=== PATIENT | female | born 1980 | race Caucasian/White ===

== ENCOUNTER 2016-06-21 16:29 | Emergency (ER) | payer SELFPAY ==
[2016-06-21 16:35] VITALS: BP 105/64; PULSE 73; TEMP 97.8; BMI 24.7
== END 2016-06-21 19:17 | disposition left against medical advice (07) ==
LOC: JER 16:29
DX: Z53.21 Procedure and treatment not carried out due to patient leaving prior to being seen by health care provider (principal)
CPT/HCPCS: 99281-25

== ENCOUNTER 2017-05-13 07:22 | Day surgery (SDC) | payer OTHER ==
[2017-05-13] MEDS ORDERED: IRON SUCROSE INJECTION 200 MG in SODIUM CHLORIDE 100 ML IVPB ONE (08:00)
[2017-05-13 09:24] VITALS: TEMP 98.1
[2017-05-13 09:38] VITALS: BP 106/70; PULSE 80
== END 2017-05-13 10:00 | disposition home or self-care (01) ==
LOC: JONCNONCHE 07:22 → J7W 08:34 → JONCNONCHE 10:00
PROVIDERS: ATTEND Internal Medicine Hematology & Oncology
PROC: 3E033GC Introduction of Other Therapeutic Substance into Peripheral Vein, Percutaneous Approach (ICD-10-PCS; principal; 2017-05-13)
DX: D50.9 Iron deficiency anemia, unspecified (principal)
CPT/HCPCS: 96365; J1756

== ENCOUNTER 2017-06-03 07:42 | Day surgery (SDC) | payer OTHER ==
[2017-06-03] MEDS ORDERED: IRON SUCROSE INJECTION 200 MG in SODIUM CHLORIDE 100 ML IVPB ONE (10:00)
[2017-06-03 13:37] VITALS: BP 96/66; PULSE 76; TEMP 98.5
== END 2017-06-03 12:15 | disposition home or self-care (01) ==
LOC: JONCNONCHE 07:42 → J7W 09:54 → JONCNONCHE 12:15
PROVIDERS: ATTEND Internal Medicine Hematology & Oncology
PROC: 3E033GC Introduction of Other Therapeutic Substance into Peripheral Vein, Percutaneous Approach (ICD-10-PCS; principal; 2017-06-03)
DX: D50.9 Iron deficiency anemia, unspecified (principal)
CPT/HCPCS: 96365; J1756

== ENCOUNTER 2017-07-29 07:34 | Day surgery (SDC) | payer OTHER ==
[2017-07-29] MEDS ORDERED: IRON SUCROSE INJECTION 200 MG in SODIUM CHLORIDE 100 ML IVPB ONE (10:00)
[2017-07-29 11:03] LABS: BASO % 1.1 % (0-2.0); HEMATOCRIT 27.4 % (32.4-45.2); HEMOGLOBIN 8.6 GM/dL (10.7-15.3); LYMPH % 51.5 % (8-40); MCH 22.9 pg (25.7-33.7); MCHC 31.3 g/dl (32.0-36.0); MEAN CELL VOLUME 73.1 fl (80-96); MEAN PLT VOLUME 7.1 fl (7.5-11.1); MONO % 9.3 % (3.8-10.2); NEUT % 36.1 % (42.8-82.8); PLATELET COUNT 333 K/MM3 (134-434); RBC 3.74 M/mm3 (3.60-5.2); WHITE BLOOD COUNT 4.3 K/mm3 (4.0-10.0)
[2017-07-29 11:21] LABS: ALBUMIN 3.3 g/dl (3.4-5.0); ANION GAP 6 (8-16); BILIRUBIN,TOTAL 0.1 mg/dL (0.2-1.0); BLOOD UREA NITROGEN 15 mg/dL (7-18); CALCIUM 8.4 mg/dL (8.5-10.1); CHLORIDE 104 mmol/L (98-107); CO2 30 mmol/L (21-32); CREATININE 0.5 mg/dL (0.55-1.02); GLUCOSE,RANDOM 73 mg/dL (74-106); POTASSIUM 4.2 mmol/L (3.5-5.1); SGOT/AST 13 U/L (15-37); SGPT/ALT 23 U/L (12-78); SODIUM 140 mmol/L (136-145); TOT PROT 6.7 g/dl (6.4-8.2)
[2017-07-29 11:23] LABS: ALK PHOS 83 U/L (45-117)
--- NOTE | 2017-07-29 13:19 | HP ---
Satellite [facility] - Chief Complaint Chief Complaint: Here for follow up of iron deficiency anemia. Patient is very noncompliant. Has not followed up and followed through with CT scans or w/u. Has not followe up with Dr. Lara for colposcopy for abnormal pap smear. Reports fatigue, tiresomness History Source: Patient - Past Medical History Allergies/Adverse Reactions: Allergies Allergy/AdvReac Type Severity Reaction Status Date / Time codeine [Codeine] AdvReac Severe Verified 06/22/16 08:51 metoclopramide HCl AdvReac Severe Verified 06/22/16 08:51 [From Reglan] Gastrointestinal: Yes: Other (history of morbid obesity hx of gastric baypass) Hepatobiliary: Yes: Cholelithiasis ...LMP: 10/01/15 Heme/Onc: Yes: Anemia - Current Medications Current Medications: Home Medications Medication Instructions Recorded Aripiprazole [Abilify] 5 mg PO DAILY 10/06/15 Dextroamphetamine/Amphetamine 30 mg PO DAILY 10/06/15 [Adderall Xr 30 mg Capsule] Escitalopram Oxalate [Lexapro -] 20 mg PO DAILY 10/06/15 Ondansetron [Zofran -] 4 mg PO TID PRN #21 tablet 06/22/16 Satellite Physical Exam - Physical Examination General Appearance: Alert & Oriented x3 Lung: Clear to auscultation, Normal air movement Heart: Regular rate & rhythm, Normal S1, Normal S2 Abdomen: Soft, No tenderness Extremities: No edema Neurological: Intact Satellite Impression/Plan - Impression/Plan Impression: 36 y/o patient , s/p gastric bypass. HAs iron deficiency anemia. Noncompliant with follow up and treatment recommendations. Reurged patient to f /u with GI team and f/u with research associate quality control qc team regarding abnormal papsmear/colposcopy. discussed need to follow up CT chest/abdome/pelvis. Symptomatic anemia. will order blood transfusion
[2017-07-29 16:37] VITALS: BP 100/50; PULSE 67; TEMP 98
[2017-07-30 08:10] LABS: SERUM IRON SATURATION 4 % (15-55); TOTAL IRON BINDING CAPACITY 419 ug/dL (250-450); UIBC 401 ug/dL (131-425)
== END 2017-07-29 21:58 | disposition home or self-care (01) ==
LOC: JONCNONCHE 07:34 → J7W 09:20 → JONCNONCHE 21:58
PROVIDERS: ATTEND Internal Medicine Hematology & Oncology
PROC: 3E033GC Introduction of Other Therapeutic Substance into Peripheral Vein, Percutaneous Approach (ICD-10-PCS; principal; 2017-07-29)
DX: D50.9 Iron deficiency anemia, unspecified (principal)
CPT/HCPCS: 36415; 36430; 80053; 82728; 83540; 83550; 84703; 85025; 86850; 86900; 86901; 86922; 96365; J1756; P9038; P9058

== ENCOUNTER 2017-09-15 12:50 | Emergency (ER) | payer OTHER ==
[2017-09-15 13:08] VITALS: BP 108/55; PULSE 83; TEMP 98.3; BMI 25.6
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
[2017-09-15] MEDS ORDERED: KETOROLAC TROMETHAMINE 60 MG/2 ML VIAL IM ONE (13:32)
[2017-09-15] MEDS ORDERED: KETOROLAC TROMETHAMINE 60 MG/2 ML VIAL ONE (13:35)
[2017-09-15] MEDS ORDERED: CYCLOBENZAPRINE HCL 10 MG TABLET (FP) ONE (13:35)
[2017-09-15] MEDS ORDERED: CYCLOBENZAPRINE HCL 5 MG TABLET PO SCH (13:45)
== END 2017-09-15 15:17 | disposition home or self-care (01) ==
LOC: JERFT 12:50
PROC: 3E0233Z Introduction of Anti-inflammatory into Muscle, Percutaneous Approach (ICD-10-PCS; principal; 2017-09-15)
DX: J34.89 Other specified disorders of nose and nasal sinuses (principal); M25.561 Pain in right knee; M25.532 Pain in left wrist; V49.49XA Driver injured in collision with other motor vehicles in traffic accident, initial encounter; Y92.414 Local residential or business street as the place of occurrence of the external cause; W22.11XA Striking against or struck by driver side automobile airbag, initial encounter; Y93.89 Activity, other specified; Y99.8 Other external cause status; D50.9 Iron deficiency anemia, unspecified; F32.9 Major depressive disorder, single episode, unspecified; F41.9 Anxiety disorder, unspecified; F90.9 Attention-deficit hyperactivity disorder, unspecified type; Z87.19 Personal history of other diseases of the digestive system; Z98.84 Bariatric surgery status
CPT/HCPCS: 70160-TC-FY; 73110-TC-LR-FY; 73562-TC-RT-FY; 99281-25

== ENCOUNTER 2018-04-06 08:11 | Day surgery (SDC) | payer OTHER ==
[2018-04-06 08:47] VITALS: BMI 31.1
[2018-04-06 09:39] VITALS: TEMP 98.2
--- NOTE | 2018-04-06 10:23 | OP ---
DATE OF OPERATION: 04/06/2018 SURGEON: Guerita Batista MD ANESTHESIA: MAC. PREOPERATIVE DIAGNOSIS: Weight regain status Jennifer-en-Y gastric bypass. POSTOPERATIVE DIAGNOSIS: Dilated gastric outlet and dilated gastric pouch. SPECIMEN: None. ESTIMATED BLOOD LOSS: Zero. REASON FOR PROCEDURE: This is a 37-year-old female who underwent a Jennifer-en-Y gastric bypass in the past. Since that time, she has regained weight. Because of this, an upper endoscopy was performed to evaluate for dilated gastric outlet/gastric pouch. Risks and benefits of the procedure were explained. These included bleeding; infection; UT; DVT; PE; injury to surrounding structures including the oral cavity, esophagus, GE junction, gastric pouch, jejunum/intestine; perforation; and stricture. She understood and signed informed consent. DESCRIPTION OF PROCEDURE: Patient was placed in the left lateral decubitus position. A bite block was placed, and timeout was performed. She underwent MAC by Anesthesia. The endoscope was placed into the patient's mouth, inserted into the esophagus, GE junction, and gastric pouch to the gastric outlet. The gastric outlet was noted to be dilated to approximately 3 cm in diameter. In addition, the gastric pouch was noted to be dilated as well. The stomach was suctioned and the scope fully removed. The patient tolerated the procedure well, transferred to recovery room in stable condition. GUERITA BATISTA M.D. [id number]
[2018-04-06 11:23] VITALS: BP 118/80; PULSE 76
== END 2018-04-06 10:35 | disposition home or self-care (01) ==
LOC: JASU-ENDO 08:11
PROVIDERS: ATTEND Surgery
PROC: 0DJ08ZZ Inspection of Upper Intestinal Tract, Via Natural or Artificial Opening Endoscopic (ICD-10-PCS; principal; 2018-04-06 09:00)
DX: K31.0 Acute dilatation of stomach (principal); R63.5 Abnormal weight gain; Z98.84 Bariatric surgery status
CPT/HCPCS: 84703

== ENCOUNTER 2018-07-30 14:08 | Emergency (ER) | payer OTHER ==
[2018-07-30 14:16] VITALS: BP 108/74; PULSE 80; TEMP 98.1; BMI 32.0
[2018-07-30] MEDS ORDERED: KETOROLAC TROMETHAMINE 60 MG/2 ML VIAL IM ONE (14:58)
[2018-07-30] MEDS ORDERED: KETOROLAC TROMETHAMINE 60 MG/2 ML VIAL ONE (15:02)
--- NOTE | 2018-07-30 15:06 | PDOC ---
History of Present Illness - General Chief Complaint: Pain, Acute Stated Complaint: BILAT LEG PAIN / SOB Time Seen by Provider: 07/30/18 14:40 - History of Present Illness Initial Comments: 07/30/18 15:02 37-year-old female with a past medical history significant for depression presents for evaluation of bilateral atraumatic onset of lower back and leg pain 2 days. She describes her pain is achy exacerbated with activity and relieved with rest 3 radiation. No loss of bowel or bladder function or saddle paresthesias pain on the posterior lateral aspect of both legs to about the level of the knees. Past History - Past Medical History Allergies/Adverse Reactions: Allergies Allergy/AdvReac Type Severity Reaction Status Date / Time codeine [Codeine] AdvReac Severe Verified 07/30/18 14:13 metoclopramide HCl AdvReac Severe Verified 07/30/18 14:13 [From [facility]] Home Medications: Ambulatory Orders Aripiprazole [Abilify] 5 mg PO DAILY 10/06/15 Dextroamphetamine/Amphetamine [Adderall Xr 30 mg Capsule] 30 mg PO DAILY Escitalopram Oxalate [Lexapro -] 20 mg PO DAILY 10/06/15 Ibuprofen [Motrin -] 600 mg PO TID #30 tablet 07/30/18 Anemia: Yes Asthma: No Cancer: No Cardiac Disorders: No CVA: No COPD: No CHF: No DVT: No Dementia: No Diabetes: No GI Disorders: Yes (ulcerative colitis) Disorders: No HTN: No Hypercholesterolemia: No Liver Disease: No Psychiatric Problems: Yes (anxiety and depression) Seizures: No Thyroid Disease: No - Surgical History Abdominal Surgery: Yes (gastric bypass and tummy tuck) Appendectomy: Yes Cholecystectomy: Yes - Suicide/Smoking/Psychosocial Hx Smoking History: Never smoked Have you smoked in the past 12 months: No Hx Alcohol Use: No Drug/Substance Use Hx: No Substance Use Type: None Hx Substance Use Treatment: No Review of Systems - Review of Systems Constitutional: No: Fever Musculoskeletal: Yes: Back Pain *Physical Exam - Vital Signs Last Vital Signs Temp Pulse Resp BP Pulse Ox 98.1 F 80 18 108/74 99 07/30/18 14:10 07/30/18 14:10 07/30/18 14:10 07/30/18 14:10 07/30/18 14:10 - Physical Exam Comments: 07/30/18 15:02 Lumbar spine skin color and temperature are normal. There is no midline tenderness mild right and left paralumbar lumbar musculature spasm and tenderness. 5 out of 5 strength in bilateral lower extremities without gross sensorimotor deficits thighs and calves are soft and nontender positive straight leg raise test bilaterally. She is neurovascularly intact. Moderate Sedation - Procedure Monitoring Vital Signs: Procedure Monitoring Vital Signs Temperature 98.1 F 07/30/18 14:10 Pulse Rate 80 07/30/18 14:10 Respiratory Rate 18 07/30/18 14:10 Blood Pressure 108/74 07/30/18 14:10 O2 Sat by Pulse Oximetry (%) 99 07/30/18 14:10 Medical Decision Making - Medical Decision Making 07/30/18 15:04 Patient has a psych history I will forego the Medrol Dosepak and Flexeril and treat her with Motrin and orthopedic spine surgery follow-up *DC/Admit/Observation/Transfer Diagnosis at time of Disposition: Lumbar radiculopathy - Discharge Dispostion Disposition: HOME Condition at time of disposition: Improved Decision to Admit order: No - Referrals Referrals: Colin Munson MD [Primary Care Provider] - Farhat Coppola MD [Staff Physician] - - Patient Instructions Printed Discharge Instructions: Lumbar Radiculopathy, DI for Lumbar Radiculopathy Additional Instructions: Please take the anti-inflammatory as directed. Return to the emergency room for worsening symptoms. Follow-up with orthopedic spine surgery in 1-2 days for further evaluation and treatment options. - Post Discharge Activity
== END 2018-07-30 15:45 | disposition home or self-care (01) ==
LOC: JER 14:08 → JERFT 14:08
PROC: 3E0233Z Introduction of Anti-inflammatory into Muscle, Percutaneous Approach (ICD-10-PCS; principal; 2018-07-30)
DX: M54.16 Radiculopathy, lumbar region (principal); F41.8 Other specified anxiety disorders; F32.9 Major depressive disorder, single episode, unspecified; Z86.2 Personal history of diseases of the blood and blood-forming organs and certain disorders involving the immune mechanism; Z87.19 Personal history of other diseases of the digestive system
CPT/HCPCS: 99281-25

== ENCOUNTER 2018-10-02 08:54 | Day surgery (SDC) | payer OTHER ==
[2018-10-02] MEDS ORDERED: IRON SUCROSE INJECTION 200 MG in SODIUM CHLORIDE 100 ML IVPB ONE (09:00)
[2018-10-02 10:07] VITALS: TEMP 98.8
[2018-10-02 11:43] VITALS: BP 100/64; PULSE 84
== END 2018-10-02 11:44 | disposition home or self-care (01) ==
LOC: JINFUSION 08:54
PROVIDERS: ATTEND Family Medicine
PROC: 3E033GC Introduction of Other Therapeutic Substance into Peripheral Vein, Percutaneous Approach (ICD-10-PCS; principal; 2018-10-02)
DX: D64.9 Anemia, unspecified (principal)
CPT/HCPCS: 84703; 96365; J1756

== ENCOUNTER 2018-10-09 09:00 | Day surgery (SDC) | payer OTHER ==
[2018-10-09] MEDS ORDERED: IRON SUCROSE INJECTION 200 MG in SODIUM CHLORIDE 100 ML IVPB ONE (10:00)
[2018-10-09 10:27] VITALS: TEMP 98.5
[2018-10-09 11:46] VITALS: BP 96/64; PULSE 82
== END 2018-10-09 11:40 | disposition home or self-care (01) ==
LOC: JINFUSION 09:00
PROVIDERS: ATTEND Family Medicine
PROC: 3E033GC Introduction of Other Therapeutic Substance into Peripheral Vein, Percutaneous Approach (ICD-10-PCS; principal; 2018-10-09)
DX: D64.9 Anemia, unspecified (principal)
CPT/HCPCS: 84703; 96365; J1756

== ENCOUNTER 2019-06-20 20:57 | Emergency (ER) | payer OTHER ==
[2019-06-20 21:08] VITALS: BP 122/72; PULSE 75; TEMP 98.1; BMI 32.0
--- NOTE | 2019-06-20 21:09 | PDOC ---
Rapid Medical Evaluation Chief Complaint: Pain Time Seen by Provider: 06/20/19 21:06 Medical Evaluation: Allergies Allergy/AdvReac Type Severity Reaction Status Date / Time codeine [Codeine] AdvReac Severe Verified 06/20/19 21:04 metoclopramide HCl AdvReac Severe Verified 06/20/19 21:04 [From Reglan] 06/20/19 21:08 Pt presents with R lower leg pain for one day. She state the pain starts in the heel and travels up the leg. Pt works as a nurse. Exam: TTP of the bottom R heel and R achilles Orders: US Pt to proceed to the ER for further evaluation Discharge Disposition - Diagnosis Leg pain - Referrals - Patient Instructions - Post Discharge Activity
[2019-06-20] MEDS ORDERED: IBUPROFEN 600 MG TABLET (FP) PO ONE ×2 (22:26→22:29)
--- NOTE | 2019-06-20 23:08 | PDOC ---
History of Present Illness - General Chief Complaint: Pain Stated Complaint: RT LEG PAIN Time Seen by Provider: 06/20/19 21:06 History Source: Patient Exam Limitations: No Limitations - History of Present Illness Initial Comments: 06/20/19 23:03 Patient is a 38-year-old female with a history of anemia presents to the ED with right foot pain that started today. She states the pain radiates up her leg. She denies any numbness or tingling. She denies any long travel, cancer history or smoking history. She has no history of DVTs or PEs in the past. She states the pain just started today. She is a nurse and stands all day. Past History - Past Medical History Allergies/Adverse Reactions: Allergies Allergy/AdvReac Type Severity Reaction Status Date / Time codeine [Codeine] AdvReac Severe Verified 06/20/19 21:04 metoclopramide HCl AdvReac Severe Verified 06/20/19 21:04 [From [facility]] Home Medications: Ambulatory Orders Aripiprazole [Abilify] 5 mg PO DAILY 10/06/15 Dextroamphetamine/Amphetamine [Adderall Xr 30 mg Capsule] 30 mg PO DAILY Escitalopram Oxalate [Lexapro -] 20 mg PO DAILY 10/06/15 Ibuprofen [Motrin -] 600 mg PO TID #30 tablet 07/30/18 Ibuprofen [Motrin -] 600 mg PO TID PRN #21 tablet 06/20/19 Anemia: Yes Asthma: No Cancer: No Cardiac Disorders: No CVA: No COPD: No CHF: No DVT: No Dementia: No Diabetes: No GI Disorders: Yes (ulcerative colitis) Disorders: No HTN: No Hypercholesterolemia: No Liver Disease: No Psychiatric Problems: Yes (anxiety and depression) Seizures: No Thyroid Disease: No - Surgical History Abdominal Surgery: Yes (gastric bypass and tummy tuck) Appendectomy: Yes Cholecystectomy: Yes - Psycho Social/Smoking Cessation Hx Smoking History: Never smoked Have you smoked in the past 12 months: No Hx Alcohol Use: No Drug/Substance Use Hx: No Substance Use Type: None Hx Substance Use Treatment: No Review of Systems - Review of Systems Comments:: 06/20/19 23:04 - Review of Systems Able to Perform ROS?: Yes Constitutional: No: Fever, Chills, Loss of Appetite, Night Sweats, Weakness Respiratory: No: Cough, Shortness of Breath, Wheezing, Sputum Production Cardiac (ROS): No: Chest Pain, Chest Tightness, Palpitations, Irregular Heart Beat, Edema ABD/GI: No: Nausea, Vomiting, Abdominal Pain, Diarrhea Musculoskeletal: No: Muscle Pain, Back Pain, Joint Pain, Muscle Weakness, Neck Pain; Right foot pain Integumentary: No: Lesions, Rash Neurological: No: Headache, Numbness, Tingling, Weakness, Speech Difficulties *Physical Exam - Vital Signs Last Vital Signs Temp Pulse Resp BP Pulse Ox 98.1 F 75 18 122/72 100 06/20/19 21:04 06/20/19 21:04 06/20/19 21:04 06/20/19 21:04 06/20/19 21:04 - Physical Exam 06/20/19 23:04 - Physical Exam General Appearance: Nourished, Appropriately Dressed, No Distress Neck: Supple, No Lymphadenopathy (R), No Lymphadenopathy (L), No Rigidity, No Decreased range of motion Respiratory/Chest: Lungs Clear, Normal Breath Sounds. No Respiratory Distress, No Accessory Muscle Use Cardiovascular: Regular Rhythm, Regular Rate, S1, S2 Musculoskeletal: Normal Inspection. No Decreased Range of Motion; Right foot pain with tenderness at the base of the heel consistent with plantar fasciitis. No calf pain to palpation. No discrepancy in calf size appreciated. Extremity: Normal Capillary Refill, Normal Inspection Integumentary: Normal Color, Dry. No Rash Neurologic: bag sewer II-XII NML intact, Fully Oriented, Alert, Normal Mood/Affect, Normal Response ED Treatment Course - Medications Given in the ED: ED Medications Discontinued Medications Generic Name Dose Route Start Last Admin Trade Name Mrelene PRN Reason Stop Dose Admin Ibuprofen 600 mg 06/20/19 22:26 06/20/19 22:28 Motrin - PO 06/20/19 22:27 600 mg ONCE ONE Administration Medical Decision Making - Medical Decision Making 06/20/19 23:05 Patient is a 38-year-old female with right foot pain that radiates up her leg. The pain is consistent with plantar fasciitis. She had an ultrasound to rule out DVT which was negative. We will discharge the patient with a prescription for Motrin and have her follow-up with orthopedics for further evaluation. She understands and agrees with treatment and plan and the patient stable for discharge. Discharge - Discharge Information Problems reviewed: Yes Clinical Impression/Diagnosis: Plantar fasciitis of right foot Condition: Stable Disposition: HOME - Additional Discharge Information Prescriptions: Ibuprofen [Motrin -] 600 mg PO TID PRN #21 tablet PRN Reason: Pain - Follow up/Referral Referrals: Colin Munson MD [Primary Care Provider] - Anselmo Muller MD [Staff Physician] - 1 week - Patient Discharge Instructions Patient Printed Discharge Instructions: DI for Plantar Fasciitis Additional Instructions: Wear supportive shoes. Do stretching exercises of your foot to help with soreness. Take Motrin only as needed for pain. Follow-up with orthopedics within 1 week for repeat evaluation. - Post Discharge Activity Work/Back to School Note: Back to Work
== END 2019-06-20 23:20 | disposition home or self-care (01) ==
LOC: JER 20:57 → JERFT 20:57 → JER 23:20
DX: M72.2 Plantar fascial fibromatosis (principal); Z88.8 Allergy status to other drugs, medicaments and biological substances; Z88.5 Allergy status to narcotic agent
CPT/HCPCS: 93971-TC; 99281-25

== ENCOUNTER 2019-07-11 09:28 | Day surgery (SDC) | payer OTHER ==
[2019-07-11] MEDS ORDERED: FERRIC CARBOXYMALTOSE 750 MG in SODIUM CHLORIDE 250 ML IVPB ONE (11:00)
[2019-07-11 12:24] VITALS: BP 90/48; PULSE 80; TEMP 97.8
== END 2019-07-11 12:26 | disposition home or self-care (01) ==
LOC: JINFUSION 09:28 → J7W 09:29 → JINFUSION 12:26
PROVIDERS: ATTEND Family Medicine
PROC: 3E033GC Introduction of Other Therapeutic Substance into Peripheral Vein, Percutaneous Approach (ICD-10-PCS; principal; 2019-07-11)
DX: I50.9 Heart failure, unspecified (principal)
CPT/HCPCS: 96365; J1439

== ENCOUNTER 2020-11-24 14:24 | Emergency (ER) | payer OTHER ==
[2020-11-24 14:41] VITALS: BP 132/56; PULSE 84; TEMP 98.4; BMI 32.9
[2020-11-24] MEDS ORDERED: LACTATED RINGERS SOLUTION 1,000 ML/1,000 ML INFUS.BAG IV STA (15:12)
[2020-11-24 16:11] LABS: INR 1.1 (0.82-1.09); PROTHROMBIN TIME (PATIENT) 12.2 SEC (10.2-13.0)
[2020-11-24 16:16] LABS: ALBUMIN 3.9 g/dl (3.4-5.0); CALCIUM 8.8 mg/dl (8.5-10); CREATININE 0.6 mg/dl (0.55-1.3); MAGNESIUM 1.8 mg/dL (1.8-2.4); PHOSPHOROUS 3.7 mg/dl (2.5-4.9); TOT PROT 7.8 g/dl (6.4-8.2)
[2020-11-24 16:19] LABS: BASO % 1.9 % (0-2.0); EOS % 1.3 % (0-4.5); HEMOGLOBIN 10.6 GM/dl (10.7-15.3); LYMPH % 32.2 % (8-40); MCH 22.4 pg (25.7-33.7); MCHC 31.3 g/dl (32.0-36.0); MEAN CELL VOLUME 71.5 fl (80-96); MEAN PLT VOLUME 8.5 fl (7.5-11.1); MONO % 7.2 % (3.8-10.2); NEUT % 57.4 % (42.8-82.8); PLATELET COUNT 396 10^3/uL (134-434); RBC 4.75 M/mm3 (3.60-5.2); WHITE BLOOD COUNT 6.7 K/mm3 (4.0-10.8)
[2020-11-24 16:21] LABS: ADD RBC MORPHOLOGY YES
[2020-11-24] MEDS ORDERED: ONDANSETRON 4 MG TABLET PO PRN (16:58)
[2020-11-24 19:07] LABS: ANISOCYTOSIS 1+; PLATELET ESTIMATE ADEQUATE
== END 2020-11-24 17:24 | disposition home or self-care (01) ==
LOC: FER 14:24
PROC: 3E0337Z Introduction of Electrolytic and Water Balance Substance into Peripheral Vein, Percutaneous Approach (ICD-10-PCS; principal; 2020-11-24)
DX: D64.9 Anemia, unspecified (principal); R53.1 Weakness
CPT/HCPCS: 36415; 80053; 83735; 84100; 85025; 85610; 93005; 99284-25

== ENCOUNTER 2020-11-26 10:03 | Day surgery (SDC) | payer OTHER ==
[2020-11-26] MEDS ORDERED: FERRIC CARBOXYMALTOSE 750 MG in SODIUM CHLORIDE 250 ML IVPB ONE (11:00)
[2020-11-26 11:12] VITALS: BP 138/84; PULSE 58; TEMP 98.7
== END 2020-11-26 12:33 | disposition home or self-care (01) ==
LOC: FINFUSION 10:03 → FM/S 10:05 → FINFUSION 12:33
PROVIDERS: ATTEND Family Medicine
PROC: 3E033GC Introduction of Other Therapeutic Substance into Peripheral Vein, Percutaneous Approach (ICD-10-PCS; principal; 2020-11-26)
DX: D50.9 Iron deficiency anemia, unspecified (principal)
CPT/HCPCS: 96365; J1439

== ENCOUNTER 2020-12-03 12:32 | Day surgery (SDC) | payer OTHER ==
[2020-12-03] MEDS ORDERED: FERRIC CARBOXYMALTOSE 750 MG in SODIUM CHLORIDE 250 ML IVPB ONE (13:15)
[2020-12-03 14:22] VITALS: BP 124/92; PULSE 79; TEMP 98.7
== END 2020-12-03 14:40 | disposition home or self-care (01) ==
LOC: FINFUSION 12:32 → FM/S 12:32 → FINFUSION 14:40
PROVIDERS: ATTEND Family Medicine
PROC: 3E033GC Introduction of Other Therapeutic Substance into Peripheral Vein, Percutaneous Approach (ICD-10-PCS; principal; 2020-12-03)
DX: D50.9 Iron deficiency anemia, unspecified (principal)
CPT/HCPCS: 81025; 96365; J1439

== ENCOUNTER 2022-04-26 04:44 | Day surgery (SDC) | payer BC ==
[2022-04-20 17:03] VITALS: BMI 32.9
[2022-04-26] MEDS ORDERED: GENTAMICIN SO4 80 MG/2 ML VIAL ONE (12:47)
[2022-04-26] MEDS ORDERED: MIDAZOLAM HCL 2 MG/2 ML SINGLE DOSE VIAL ONE (12:48)
[2022-04-26] MEDS ORDERED: FENTANYL CITRATE/PF 50 MCG/ML VIAL ONE ×2 (12:48→12:52)
[2022-04-26] MEDS ORDERED: LIDOCAINE HCL/PF 2% SDV 5ML VIAL ONE (12:51)
[2022-04-26] MEDS ORDERED: ceFAZolin SODIUM 1 GM VIAL ONE (12:51)
[2022-04-26] MEDS ORDERED: ONDANSETRON 4 MG/2 ML VIAL ONE (12:51)
[2022-04-26] MEDS ORDERED: DEXAMETHASONE SOD PHOSPHATE 4 MG/1 ML VIAL ONE (12:51)
[2022-04-26] MEDS ORDERED: KETOROLAC TROMETHAMINE 30 MG/1 ML VIAL ONE (12:52)
[2022-04-26] MEDS ORDERED: PROPOFOL 20 ML ONE (12:58)
[2022-04-26] MEDS ORDERED: GENTAMICIN SO4 80 MG/2 ML VIAL IVPB ONE (13:10)
[2022-04-26] MEDS ORDERED: ceFAZolin SODIUM 1 GM VIAL IVPB ONE (13:10)
[2022-04-26] MEDS ORDERED: PROMETHAZINE HCL 25 MG/1 ML VIAL IVPUSH PRN (13:52)
[2022-04-26] MEDS ORDERED: ONDANSETRON 4 MG/2 ML VIAL IVPUSH PRN (13:52)
[2022-04-26] MEDS ORDERED: oxyCODONE HCL 5 MG TABLET PO PRN ×2 (13:52)
[2022-04-26] MEDS ORDERED: ACETAMINOPHEN 1000 MG/100 ML BAG IVPB ONE (13:53)
[2022-04-26] MEDS ORDERED: LACTATED RINGERS SOLUTION 1,000 ML IV SCH (14:00)
[2022-04-26 14:35] VITALS: RESP 16
[2022-04-26 15:18] VITALS: TEMP 9706
[2022-04-26 16:33] VITALS: BP 120/64; PULSE 80
== END 2022-04-26 15:45 | disposition home or self-care (01) ==
LOC: JASU-SURG 04:44
PROVIDERS: ATTEND Obstetrics & Gynecology
PROC: 0UB98ZZ Excision of Uterus, Via Natural or Artificial Opening Endoscopic (ICD-10-PCS; principal; 2022-04-26 11:00)
DX: N92.0 Excessive and frequent menstruation with regular cycle (principal); N80.03 Adenomyosis of the uterus; N84.0 Polyp of corpus uteri
CPT/HCPCS: 87086; 88305-TC; 94760

== ENCOUNTER 2022-09-20 19:06 | Day surgery (SDC) | payer BC ==
[2022-09-16 18:11] VITALS: BMI 33.5
[2022-09-20 10:27] LABS: HEMATOCRIT 35.6 % (32.4-45.2); MCH 25.2 pg (25.7-33.7); MCHC 33.6 g/dl (32.0-36.0); MEAN PLT VOLUME 7.2 fl (7.5-11.1); PLATELET COUNT 316 10^3/uL (134-434); RBC 4.75 M/mm3 (3.60-5.2); RDW 26.3 % (11.6-15.6)
[2022-09-20 10:35] LABS: INR 1.08 (0.83-1.09); PROTHROMBIN TIME (PATIENT) 12.5 SEC (9.7-13.0)
[2022-09-20 10:38] LABS: ACTIVATED PTT 29.9 SECONDS (25.2-36.5)
[2022-09-20 10:45] LABS: POTASSIUM 3.9 mmol/L (3.5-5.1)
[2022-09-20] MEDS: LACTATED RINGERS SOLUTION 1,000 ML/1,000 ML INFUS.BAG IV SCH (17:45)
[2022-09-20] MEDS: CEFAZOLIN SODIUM 2 GM in DEXTROSE 5%-WATER 100 ML IVPB SCH (18:29)
[~2022-09-20 19:06] MED LIST: ACETAMINOPHEN 1000 MG/100 ML BAG IVPB ONE; BUPIVACAINE HCL/PF 0.5% (5 MG/ML) 30 ML VIAL IJ ONE; BUPIVACAINE HCL/PF 0.5% (5MG/ML) 10 ML VIAL ONE; CEFAZOLIN SODIUM 2 GM in DEXTROSE 5%-WATER 100 ML IVPB ONE; DEXAMETHASONE SOD PHOSPHATE 4 MG/1 ML VIAL ONE; FUROSEMIDE 40 MG/4 ML INJECTABLE VIAL ONE; GLYCOPYRROLATE 0.2 MG/1 ML VIAL ONE; HYDROmorphone *PCA* 10MG/50ML DISP.SYRIN ONE; HYDROmorphone *PCA* 10MG/50ML DISP.SYRIN PCA SCH; KETOROLAC TROMETHAMINE 30 MG/1 ML VIAL ONE; MIDAZOLAM HCL 2 MG/2 ML SINGLE DOSE VIAL ONE; NEOSTIGMINE METHYLSULFATE 0.5 MG/1 ML - 10 ML MDV ONE; ONDANSETRON 4 MG/2 ML VIAL ONE; PROPOFOL 20 ML ONE; ROCURONIUM BROMIDE 50 MG/5 ML SYRINGE ONE; ROPIVACAINE HCL 0.5% 30ML VIAL ONE; TRANEXAMIC ACID 1000 MG/10 ML VIAL ONE; ceFAZolin SODIUM 1 GM VIAL IVPB ONE; ceFAZolin SODIUM 1 GM VIAL ONE
[2022-09-21] MEDS: LACTATED RINGERS SOLUTION 1,000 ML/1,000 ML INFUS.BAG IV SCH (00:39)
[2022-09-21] MEDS ORDERED: IBUPROFEN 600 MG TABLET (FP) PO PRN (00:39)
[2022-09-21] MEDS ORDERED: ACETAMINOPHEN 325 MG TABLET (FP) PO PRN (00:40)
[2022-09-21] MEDS ORDERED: oxyCODONE HCL 5 MG TABLET PO PRN (00:40)
[2022-09-21] MEDS: CEFAZOLIN SODIUM 2 GM in DEXTROSE 5%-WATER 100 ML IVPB SCH (01:09)
[2022-09-21 08:34] VITALS: BP 109/71; PULSE 71; RESP 18; TEMP 98.6
[2022-09-21 08:59] LABS: BASO % 0.3 % (0-2.0); EOS % 0.1 % (0-4.5); HEMOGLOBIN 11.3 GM/dL (10.7-15.3); LYMPH % 22.9 % (8-40); MCHC 33.2 g/dl (32.0-36.0); MEAN CELL VOLUME 75.3 fl (80-96); MEAN PLT VOLUME 7.3 fl (7.5-11.1); MONO % 5.7 % (3.8-10.2); PLATELET COUNT 338 10^3/uL (134-434); RBC 4.51 M/mm3 (3.60-5.2); RDW 26.2 % (11.6-15.6); WHITE BLOOD COUNT 8.2 K/mm3 (4.0-10.0)
[2022-09-21 09:29] LABS: POTASSIUM 4.1 mmol/L (3.5-5.1)
[2022-09-21 09:33] LABS: CALCIUM 8.8 mg/dL (8.5-10.1)
[2022-09-21 09:34] LABS: BLOOD UREA NITROGEN 10.9 mg/dL (7-18)
[2022-09-21 09:36] LABS: CREATININE 0.7 mg/dL (0.55-1.3)
[2022-09-21 09:38] LABS: BILIRUBIN,TOTAL 0.4 mg/dL (0.2-1); TOT PROT 6.3 g/dl (6.4-8.2)
[2022-09-21 10:11] LABS: ANISOCYTOSIS 3+; MACROCYTOSIS 0
== END 2022-09-21 09:38 | disposition home or self-care (01) ==
LOC: JASUSAT 19:06 → J3W 19:06 → JASUSAT 09-21 09:38
PROVIDERS: ATTEND Obstetrics & Gynecology
PROC: 0UT7FZZ Resection of Bilateral Fallopian Tubes, Via Natural or Artificial Opening With Percutaneous Endoscopic Assistance (ICD-10-PCS; 2022-09-20)
PROC: 0UT9FZZ Resection of Uterus, Via Natural or Artificial Opening With Percutaneous Endoscopic Assistance (ICD-10-PCS; principal; 2022-09-20 11:30)
DX: N92.0 Excessive and frequent menstruation with regular cycle (principal); N94.6 Dysmenorrhea, unspecified; D50.0 Iron deficiency anemia secondary to blood loss (chronic); N72 Inflammatory disease of cervix uteri; D25.9 Leiomyoma of uterus, unspecified; N80.03 Adenomyosis of the uterus
CPT/HCPCS: 36415; 80053; 81025; 85025; 85027; 85610; 85730; 86850; 86900; 86901; 88305-TC; 88341-TC; 88342-TC; 94010; 94760

== ENCOUNTER 2023-09-04 17:38 | Emergency (ER) | payer BC, OTHER ==
[2023-09-04 17:45] VITALS: RESP 18; TEMP 98.6; BMI 36.6
[2023-09-04] MEDS ORDERED: ACETAMINOPHEN INJECTION 100 ML IVPB ONE (18:47)
[2023-09-04] MEDS: ACETAMINOPHEN 1000 MG/100 ML BAG IVPB ONE (19:14)
[2023-09-04 19:21] LABS: BASO % 0.8 % (0-2.0); EOS % 2.2 % (0-4.5); HEMATOCRIT 36.1 % (32.4-45.2); HEMOGLOBIN 11.9 GM/dL (10.7-15.3); LYMPH % 45.6 % (8-40); MCH 26.5 pg (25.7-33.7); MCHC 32.9 g/dl (32.0-36.0); MEAN CELL VOLUME 80.5 fl (80-96); MONO % 6.9 % (3.8-10.2); NEUT % 44.5 % (42.8-82.8); PLATELET COUNT 333 10^3/uL (134-434); RBC 4.48 M/mm3 (3.60-5.2); RDW 14.2 % (11.6-15.6); WHITE BLOOD COUNT 6.7 K/mm3 (4.0-10.0)
[2023-09-04 19:28] LABS: INR 1.04 (0.83-1.09); PROTHROMBIN TIME (PATIENT) 12.1 SEC (9.7-13.0)
[2023-09-04 19:30] LABS: ACTIVATED PTT 28.9 SECONDS (25.2-36.5)
[2023-09-04 20:13] LABS: POTASSIUM 3.7 mmol/L (3.5-5.1)
[2023-09-04 20:15] LABS: CALCIUM 9.3 mg/dL (8.5-10.1)
[2023-09-04 20:16] LABS: ALBUMIN 3.3 g/dl (3.4-5.0); BLOOD UREA NITROGEN 12.9 mg/dL (7-18)
[2023-09-04 20:19] LABS: CREATININE 0.7 mg/dL (0.55-1.3)
[2023-09-04 20:20] LABS: BILIRUBIN,TOTAL 0.2 mg/dL (0.2-1); TOT PROT 6.9 g/dl (6.4-8.2)
[2023-09-04 20:28] LABS: N-TERMINAL BNP 15.5 pg/ml (5-125)
[2023-09-04] MEDS ORDERED: KETOROLAC TROMETHAMINE 30 MG/1 ML VIAL ONE (21:05)
[2023-09-04] MEDS: KETOROLAC TROMETHAMINE 30 MG/1 ML VIAL IVPUSH ONE (21:14)
[2023-09-04 21:56] VITALS: BP 91/54; PULSE 66
== END 2023-09-04 21:56 | disposition home or self-care (01) ==
LOC: JER 17:38
PROC: 3E030NZ Introduction of Analgesics, Hypnotics, Sedatives into Peripheral Vein, Open Approach (ICD-10-PCS; principal; 2023-09-04)
PROC: 3E0303Z Introduction of Anti-inflammatory into Peripheral Vein, Open Approach (ICD-10-PCS; 2023-09-04)
DX: M79.89 Other specified soft tissue disorders (principal); R06.02 Shortness of breath
CPT/HCPCS: 36415; 71045-TC-FY; 80053; 83880; 84484; 84703; 85025; 85610; 85730; 93005; 93010; 93970-TC; 99285-25; J0131